=== PATIENT | female | born 1970 | race African-American/Black ===

== ENCOUNTER → 2017-04-06 14:39 | Outpatient (CLI) | payer BC | END | disposition home or self-care (01) | LOC: D.MAMMO 14:39 | DX: Z12.31 Encounter for screening mammogram for malignant neoplasm of breast (principal) ==

== ENCOUNTER 2018-05-18 08:53 | Emergency (ER) | payer BC ==
[~2018-05-18] VITALS: Ht 152.4 cm; Wt 120.5 kg
--- NOTE | ~2018-05-18 | CN ---
PATIENT NAME:ASHLI ALLEN MEDICAL RECORD: [id number] : 72 LOCATION:.ER ADMIT DATE: ACCOUNT: [id number] CONSULTING PHYSICIAN: HARINI RENTERIA MD REFERRING PHYSICIAN: BRENDA CARDENAS MD DATE OF CONSULTATION: 05/18/2018 ADMITTING DIAGNOSIS: Chest pain. HISTORY OF PRESENT ILLNESS: Mrs. Allen had an episode of chest pain on 05/07/2018 and she had another episode day today. Today was associated with symptomatology that would be consistent with anxiety. Her troponin is normal. Her EKG is normal. She is pain free at this time. She has no other real cardiac risk factors other than the diet-controlled diabetes and hyperlipidemia is treated with atorvastatin. PHYSICAL EXAMINATION: GENERAL APPEARANCE: Well-nourished, well-developed, appears stated age. Level of distress, comfortable. PSYCHIATRIC: Mental status, alert, normal affect. Orientation, oriented to time, place and person. EYES: Lids and conjunctiva, noninjected. No discharge, no pallor. ENT: Lips, teeth, gums, normal dentition. Oropharynx, no cyanosis, no pallor. NECK: Carotid arteries, bilateral normal upstroke, no bruits, no thrills. JUGULAR VEINS: No jugular venous pressure or distention. CERVICAL LYMPH NODES: Nontender, nonenlarged. THYROID: Not enlarged. Nontender. No nodules. LUNGS: Respiratory effort, unlabored. CHEST: Normal curvature. No thoracic deformity. No chest wall tenderness. Percussion, resonant. Auscultation, clear. No wheezes, no rales, no rhonchi. CARDIOVASCULAR: Precordial exam, nondisplaced. No heaves or pericardial thrills. Rate and rhythm, regular. Heart sounds, normal S1, normal S2. No S3, no gallop, no rub. Systolic murmur, not heard. Diastolic murmur, not heard. EXTREMITIES: No cyanosis, no edema. Peripheral pulses, full and equal in all extremities, except as noted. No bruits appreciated. ABDOMEN: Soft, nondistended. Normal aorta. No bruit. Nontender. No masses. Liver, nontender, no hepatomegaly. Spleen, nontender, no splenomegaly. MUSCULOSKELETAL: No joint tenderness. No joint swelling. No erythema. NEUROLOGICAL: Normal gait, normal strength, normal tone. SKIN: Warm and dry. We will plan for stress testing with [facility] as an outpatient. We will see her back after that. TRANSINT:[id number] Voice Confirmation ID: [id number] DOCUMENT ID: [id number] HARINI RENTERIA MD CC: [id number] DICTATION DATE: 05/18/18 1129 [employer]: 05/18/18 1149 [facility] [address] [id number]
[2018-05-18 08:59] VITALS: Ht 152.4 cm; Wt 120.5 kg
[2018-05-18] MEDS ORDERED: LIPITOR40 MG PO (09:00)
[2018-05-18] MEDS ORDERED: BUSPAR 15 MG TA15 MG PO (09:01)
[2018-05-18 09:26] LABS: BASOPHILS 0.4 % (0-2); EOSINOPHILS 4.1 % (0-7); HEMATOCRIT 34.1 % (36.0-48.0); IMMATURE GRANULOCYTES 0.4 % (0-5); LYMPHOCYTES 25.4 % (15-50); MCH 27.1 pg (26.0-34.0); MCHC 32.3 g/dL (31.0-37.0); MEAN PLATELET VOLUME 9.1 fL (7.4-10.4); MONOCYTES 5.6 % (2-11); NEUTROPHILS 64.1 % (40-80); PLATELET COUNT 391 10x3/uL (130-400); RBC 4.06 10x6/uL (4.00-5.40); RDW 14.5 % (11.5-14.5); WBC 7.5 10x3/uL (4.8-10.8)
[2018-05-18 09:44] LABS: ALBUMIN 2.9 g/dL (3.4-5.0); ALKALINE PHOSPHATASE 79 U/L (46-116); ALT (SGPT) 24 U/L (10-68); BILIRUBIN - TOTAL 0.19 mg/dL (0.2-1.3); CALC OSMOLALITY 282 mosm/kg (275-300); CALCIUM 9.1 mg/dL (8.5-10.1); CARBON DIOXIDE 27.9 mmol/L (21.0-32.0); CHLORIDE - SERUM 103 mmol/L (98-107); CREATININE - SERUM 0.8 mg/dL (0.6-1.3); GLUCOSE 147 mg/dL (74-106); POTASSIUM - SERUM 4.4 mmol/L (3.5-5.1); PROTEIN - SERUM 7.5 g/dL (6.4-8.2); SODIUM 140 mmol/L (136-145); UREA NITROGEN 14 mg/dL (7-18); eGFR NON AFRICAN AMERICAN 81 mL/min (90-120)
[2018-05-18 09:54] LABS: CKMB 0.9 U/L (0.0-3.6); CREATINE KINASE 146 UL (21-215); PRO BNP 86 pg/mL (0-125); TROPONIN-I < 0.017 ng/mL (0.000-0.060)
[2018-05-18 10:37] LABS: APTT 24.8 SECONDS (22.8-39.4); INR 1.05 (0.85-1.17); PROTIME 13.2 SECONDS (11.6-15.0)
[2018-05-18 13:05] VITALS: BP 159/73
== END 2018-05-18 13:06 | disposition home or self-care (01) ==
LOC: D.ER 08:53
PROVIDERS: Family Medicine
DX: R07.89 Other chest pain (principal); R06.2 Wheezing; E11.9 Type 2 diabetes mellitus without complications; I10 Essential (primary) hypertension

== ENCOUNTER → 2018-05-22 10:13 | Outpatient (CLI) | payer BC ==
[2018-05-18 08:59] VITALS: BMI 51.8
[~2018-05-22 10:13] MED LIST: BUSPAR 15 MG TA15 MG PO; LIPITOR40 MG PO
== END | disposition home or self-care (01) ==
LOC: D.HCCARDIO 10:13
DX: R07.9 Chest pain, unspecified (principal)